=== PATIENT | male | born 1995 | race Caucasian/White ===

== ENCOUNTER 2016-12-14 21:21 | Emergency (ER) | payer SELFPAY ==
[~2016-12-14] VITALS: Ht 170.2 cm; Wt 60.5 kg
[2016-12-14] MEDS ORDERED: ONDANSETRON HCL 4 MG/2 ML VIAL IM ONE (22:30)
[2016-12-14] MEDS ORDERED: MORPHINE SULFATE 4 MG/ML SYRINGE IM ONE (22:30)
[2016-12-14 23:53] VITALS: BP 124/82
== END 2016-12-15 01:03 | disposition home or self-care (01) ==
LOC: EMS 21:23
DX: S62.101A Fracture of unspecified carpal bone, right wrist, initial encounter for closed fracture (principal); V49.40XA Driver injured in collision with unspecified motor vehicles in traffic accident, initial encounter; Y93.89 Activity, other specified; Y92.413 State road as the place of occurrence of the external cause; Y99.9 Unspecified external cause status
CPT/HCPCS: 29125; 70450; 73090; 73110; 96372; 99284; J2270; J2405

== ENCOUNTER 2025-04-11 21:02 | Emergency (ER) | payer MEDICAID ==
[~2025-04-11] VITALS: Ht 170.2 cm; Wt 74.5 kg
[2025-04-11 21:17] VITALS: TEMP 97.7
[2025-04-11 21:41] LABS: PLATELET COUNT (AUTO) 217 K/uL (150-450); RED BLOOD CELL COUNT(AUTO) 4.98 MIL/uL (4.50-5.90); RED CELL DISTRIBUTION WIDTH 13.3 % (11.5-14.5); WHITE BLOOD COUNT (AUTO) 8.6 K/uL (4.5-11.0)
[2025-04-11 21:42] LABS: COVID AG,FIA SOURCE NASAL SWAB
[2025-04-11 21:47] LABS: CALCIUM, TOTAL 8.7 mg/dL (8.8-10.5); CREATININE 1.02 mg/dL (0.60-1.30); GLOMERULAR FILTR. RATE CALC > 60 mL/min (>60); GLUCOSE,RANDOM 135 mg/dL (70-110); SODIUM SERUM 139 mmol/L (136-145); UREA NITROGEN, BLOOD 13 mg/dL (7-18)
[2025-04-11 22:08] LABS: SARS-COV2 (COVID) ANTIGEN,FIA Negative (Negative)
[2025-04-11 22:10] LABS: INFLUENZA TYPE A NEGATIVE FOR TYPE A (NEGATIVE); INFLUENZA TYPE B NEGATIVE FOR TYPE B (NEGATIVE)
[2025-04-12] MEDS: METOCLOPRAMIDE HCL 10 MG TABLET PO ONE (00:21)
[2025-04-12] MEDS: ACETAMINOPHEN 500 MG TABLET PO ONE (00:21)
[2025-04-12] MEDS ORDERED: ONDA-104 PO (01:27)
[2025-04-12 02:00] VITALS: BP 122/82; PULSE 76; RESP 16; O2SAT 98
== END 2025-04-12 02:30 | disposition home or self-care (01) ==
LOC: EMS 21:03
DX: B34.9 Viral infection, unspecified (principal); R42 Dizziness and giddiness; R50.9 Fever, unspecified; R11.2 Nausea with vomiting, unspecified; Z20.822 Contact with and (suspected) exposure to COVID-19
CPT/HCPCS: 80048; 83690; 85025; 87804; 99283